=== PATIENT | female | born 1980 | race Caucasian/White ===

== ENCOUNTER → 2020-12-25 17:01 | Outpatient (CLI) | payer MEDICARE, SELFPAY ==
[2020-12-25 17:27] LABS: Alanine Aminotransferase 69 U/L (12-78); Albumin Level 3.8 g/dl (3.5-5.0); Albumin/Globulin Ratio 1.3 (1.1-1.8); Alkaline Phosphatase 118 U/L (38-126); Anion Gap 14.4 mEq/L (5-15); Aspartate Amino Transferase 112 U/L (14-36); Bilirubin,Total 0.6 mg/dl (0.2-1.3); Blood Urea Nitrogen 11 mg/dl (7-17); Calcium 8.7 mg/dl (8.4-10.2); Carbon Dioxide 27 mmol/L (22.0-30.0); Chloride 101 mmol/L (98-107); Chol/HDL Ratio 5.4 (1-3.5); Cholesterol 195 mg/dl (140-200); Estimated Glomerular Filt Rate 112 ml/min (>60); GFR (African American) 135 ML/MIN (>60); Glucose 110 mg/dl (74-100); HDL Cholesterol 36 mg/dl (40-60); Potassium 4.4 mmoL/L (3.5-5.1); Sodium 138 mmol/L (136-145); Total Protein,Serum 6.8 g/dl (6.3-8.2); Triglycerides 160 mg/dl (30-150); VLDL Cholesterol 32 mg/dL (0-40)
[2020-12-25 17:39] LABS: Direct LDL Cholesterol 144.48 mg/dL (100-129)
[2020-12-25 17:58] LABS: Thyroid Stimulating Hormone 1.89 uIU/mL (0.465-4.68)
== END ==
PROVIDERS: Visit Provider Family Medicine
DX: I10 Essential (primary) hypertension (principal); M79.7 Fibromyalgia; E78.2 Mixed hyperlipidemia
CPT/HCPCS: 80053; 80061; 84443

== ENCOUNTER 2023-07-07 21:57 | Outpatient (CLI) | payer MEDICARE, SELFPAY ==
[2023-07-07 19:26] LABS: Basophils % 0.5 % (0.1-2.0); Eosinophils # 0.1 K/mm3 (0.0-0.4); Eosinophils % 1.1 % (0.1-12.0); Hematocrit 37.8 % (37.0-47.0); Lymphocytes # 2.2 K/mm3 (0.7-4.5); Lymphocytes % 30.7 % (10-50); Mean Corpuscular HGB Conc 31.9 g/dL (31.8-35.4); Mean Corpuscular Hemoglobin 27.2 pg (27.0-31.2); Mean Corpuscular Volume 85.5 fl (81-99); Mean Platelet Volume 9.5 fl (7.4-10.4); Monocytes # 0.4 K/mm3 (0.1-1.0); Monocytes % 5.4 % (1.7-9.3); Neutrophils # 4.5 K/mm3 (1.8-7.8); Neutrophils % 62.3 % (37.0-80.0); Platelet Count 215 K/mm3 (142-424); Red Blood Count 4.42 M/mm3 (4.20-5.40); Red Cell Distribution Width 20.8 % (11.5-17.5); White Blood Count 7.3 K/mm3 (4.8-10.8)
[2023-07-07 19:33] LABS: Alanine Aminotransferase 35 U/L (12-78); Albumin Level 4.2 g/dl (3.5-5.0); Albumin/Globulin Ratio 1.7 (1.1-1.8); Alkaline Phosphatase 99 U/L (38-126); Anion Gap 12.2 mEq/L (5-15); Aspartate Amino Transferase 74 U/L (14-36); Bilirubin,Total 0.5 mg/dl (0.2-1.3); Blood Urea Nitrogen 10 mg/dl (7-17); Carbon Dioxide 26 mmol/L (22.0-30.0); Chloride 105 mmol/L (98-107); Chol/HDL Ratio 5.6 (1-3.5); Cholesterol 212 mg/dl (140-200); Estimated Glomerular Filt Rate 110 ml/min (>60); GFR (African American) 133 ML/MIN (>60); Globulin 2.5 g/dL (1.3-3.2); Glucose 123 mg/dl (74-100); HDL Cholesterol 38 mg/dl (40-60); Potassium 4.2 mmoL/L (3.5-5.1); Sodium 139 mmol/L (136-145); Total Protein,Serum 6.7 g/dl (6.3-8.2); Triglycerides 161 mg/dl (30-150); VLDL Cholesterol 32 mg/dL (0-40)
[2023-07-07 19:45] LABS: Direct LDL Cholesterol 128.07 mg/dL (100-129)
[2023-07-07 19:48] LABS: 25-OH Vitamin D, Total < 12.8 ng/mL (30-100)
[2023-07-07 20:03] LABS: Thyroid Stimulating Hormone 1.27 uIU/mL (0.465-4.68)
[2023-07-07 20:14] LABS: Hemoglobin A1C 5.4 % (4.0-6.0)
== END 2023-07-07 23:59 ==
LOC: LAB.DROPOF 21:58
PROVIDERS: PCP Nurse Practitioner Family; Visit Provider Nurse Practitioner Family
DX: E55.9 Vitamin D deficiency, unspecified (principal); F41.9 Anxiety disorder, unspecified; E11.9 Type 2 diabetes mellitus without complications; Z79.899 Other long term (current) drug therapy
CPT/HCPCS: 80053; 80061; 82306; 83036; 84443; 85025

== ENCOUNTER 2023-07-11 20:00 | Outpatient (CLI) | payer MEDICARE, SELFPAY ==
[2023-07-11 18:48] LABS: Opiate Screen,Urine Positive ng/ml (<300)
[2023-07-11 18:49] LABS: Phencyclidine Screen,Urine Negative ng/ml (<25)
[2023-07-11 18:55] LABS: Benzodiazepines Screen,Urine Positive ng/ml (<200)
[2023-07-11 18:56] LABS: Amphetamine/Metha Screen,Urine Negative ng/ml (<1000); Barbiturates Screen,Urine Negative ng/ml (<200)
[2023-07-11 19:07] LABS: Cannabinoid Screen,Urine Negative ng/ml (<50); Cocaine Screen,Urine Negative ng/ml (<300)
[2023-07-11 19:11] LABS: Methadone Screen,Urine Negative ng/ml (<300)
== END 2023-07-11 23:59 ==
LOC: LAB.DROPOF 20:00
PROVIDERS: PCP Nurse Practitioner Acute Care; Visit Provider Nurse Practitioner Acute Care
DX: Z79.899 Other long term (current) drug therapy (principal)
CPT/HCPCS: 80307